=== PATIENT | male | born 1975 | race Caucasian/White ===

== ENCOUNTER 2023-01-18 13:21 | Day surgery (SDC) | payer OTHER ==
[2023-01-18] MEDS ORDERED: LIDOCAINE HCL 2% 100 MG/5 ML IJ ONE (13:22)
[2023-01-18] MEDS ORDERED: Decadron 4 MG INJ IV ONE (13:22)
[2023-01-18] MEDS ORDERED: DIPRIVAN 200 MG/20 ML IV ONE (15:10)
[2023-01-18] MEDS ORDERED: Versed 2 MG/2 ML Injection ONE (15:14)
--- NOTE | 2023-01-18 16:24 | XRAY ---
Indication: Left C3-C5 MBB. Intraoperative fluoroscopy provided for 11 seconds. 2 digital spot images submitted for interpretation demonstrates posterior needle tips projecting over the expected left C3-C5 nerve roots. Correlate with intraoperative findings/report.
[2023-01-18] MEDS ORDERED: Lactated Ringers 1,000 ML IV ONE (16:43)
--- NOTE | 2023-01-19 08:44 | XRAY ---
11 seconds of fluoroscopy was used in surgery for a left C3-C5 MBB.
== END 2023-01-18 15:45 | disposition home or self-care (01) ==
LOC: SDC-PAIN 13:21
PROVIDERS: ATTEND Psychiatry & Neurology Pain Medicine
DX: M47.812 Spondylosis without myelopathy or radiculopathy, cervical region (principal); Z79.899 Other long term (current) drug therapy
CPT/HCPCS: 64490; 64491; 72040; 77002; J1100; J2250; J2704

== ENCOUNTER 2024-09-18 11:50 | Day surgery (SDC) | payer OTHER ==
[2024-09-18] MEDS ORDERED: Decadron 4 MG INJ IV ONE (11:51)
[2024-09-18] MEDS ORDERED: BUPIVACAINE 0.5% VIAL IJ ONE (11:51)
[2024-09-18] MEDS ORDERED: DIPRIVAN 200 MG/20 ML IV ONE (13:40)
--- NOTE | 2024-09-18 16:30 | XRAY ---
Indication: Left C3-C5 MBB. Intraoperative fluoroscopy provided for 13 seconds. 2 digital spot image submitted for interpretation demonstrates posterior needle tips projecting over the expected left C3-C5 nerve roots. Correlate with intraoperative findings/report.
--- NOTE | 2024-09-18 17:10 | XRAY ---
13 seconds of fluoroscopy was used in surgery for a left C3-C5 MBB.
== END 2024-09-18 14:10 | disposition home or self-care (01) ==
LOC: SDC-PAIN 11:50
PROVIDERS: ATTEND Psychiatry & Neurology Pain Medicine
DX: M47.812 Spondylosis without myelopathy or radiculopathy, cervical region (principal)
CPT/HCPCS: 64490; 64491; 72040; 77002; J1100; J2704

== ENCOUNTER 2024-11-07 07:32 | Day surgery (SDC) | payer OTHER ==
[2024-11-07] MEDS ORDERED: LIDOCAINE HCL 1% 50 MG/5 ML VL IJ ONE (07:33)
[2024-11-07] MEDS ORDERED: dexAMETHasone sodium phosphate IJ ONE (07:33)
[2024-11-07] MEDS ORDERED: BUPIVACAINE 0.5% VIAL IJ ONE (07:33)
[2024-11-07] MEDS ORDERED: propofoL IV ONE ×2 (09:23→09:31)
--- NOTE | 2024-11-07 10:11 | XRAY ---
Indication: Left C3-C5 RFA. Intraoperative fluoroscopy provided for 28 seconds. 3 digital spot image submitted for interpretation demonstrates posterior needle tips projecting over the expected left C3-C5 nerve roots. Correlate with intraoperative findings/report.
--- NOTE | 2024-11-07 10:13 | XRAY ---
28 seconds of fluoroscopy was used in surgery for a left C3-C5 RFA.
== END 2024-11-07 10:01 | disposition home or self-care (01) ==
LOC: SDC-PAIN 07:32
PROVIDERS: ATTEND Psychiatry & Neurology Pain Medicine
DX: M47.812 Spondylosis without myelopathy or radiculopathy, cervical region (principal)
CPT/HCPCS: 64633; 64634; 72040; 77002; J1100; J2704